=== PATIENT | female | born 1945 | race Caucasian/White ===

== ENCOUNTER 2018-02-23 11:49 | Emergency (ER) | payer MEDICARE, BC ==
[~2018-02-23] VITALS: Ht 149.9 cm; Wt 66.0 kg
[~2018-02-23 11:49] MED LIST: AMI25T PO; AMOX-422 PO; BAC10T PO; CELE-193 PO; DESV50TA PO; ESTR0.6261 PO; GABA-338 PO; GABA300C PO; METO5TAB98 PO; OMEP-84 PO; OXYC40TA39 PO; POTA20TA19 PO; SYN0.1T PO
[2018-02-23 12:11] VITALS: BP 136/95
== END 2018-02-23 13:46 | disposition home or self-care (01) ==
LOC: ER 11:50
DX: S80.02XA Contusion of left knee, initial encounter (principal); R07.81 Pleurodynia; G89.29 Other chronic pain; Z88.1 Allergy status to other antibiotic agents; Z88.5 Allergy status to narcotic agent; W01.0XXA Fall on same level from slipping, tripping and stumbling without subsequent striking against object, initial encounter; Y93.89 Activity, other specified; Y92.89 Other specified places as the place of occurrence of the external cause; Y99.8 Other external cause status
CPT/HCPCS: 73564; 99284

== ENCOUNTER 2018-09-23 12:07 | Emergency (ER) | payer MEDICARE, BC ==
[~2018-09-23] VITALS: Ht 149.9 cm; Wt 71.0 kg
[2018-09-23 12:58] LABS: CLARITY,URINE CLOUDY (Clear); COLOR,URINE YELLOW (Yellow); GLUCOSE, URINE NEGATIVE (Neg); KETONES,URINE TRACE mg/dl (Neg); LEUKOCYTE ESTERASE ,URINE SMALL (Neg); NITRITES, URINE NEGATIVE (Neg); OCCULT BLOOD,URINE TRACE-INTACT (Neg); PH,URINE 5.5 (4.8-8.0); PROTEIN,URINE NEGATIVE (Neg); UROBILINOGEN,URINE 0.2 E.U/dL (0.2-1.0)
[2018-09-23 13:09] LABS: UA COLLECTION TYPE CLN CATCH MIDSTREAM
[2018-09-23 13:10] LABS: BACTERIA,URINE 2+ /HPF (Neg); RBC,URINE 0-2 /HPF (0-2); WBC,URINE 50-100 /HPF (0-4)
[2018-09-23 13:11] LABS: MUCUS STRANDS FEW /LPF (Neg); SQUAMOUS EPITHELIAL CELL,UR FEW /LPF (FEW); WBC CLUMPS,URINE MODERATE /HPF (NEGATIVE)
[2018-09-23] MEDS ORDERED: SULF1TAB49 PO (13:16)
[2018-09-23] MEDS ORDERED: PHEN-824 PO (13:16)
[2018-09-23 13:20] VITALS: BP 148/57
== END 2018-09-23 13:21 | disposition home or self-care (01) ==
LOC: ER 12:07
DX: N39.0 Urinary tract infection, site not specified (principal); Z88.1 Allergy status to other antibiotic agents; Z88.5 Allergy status to narcotic agent; Z79.899 Other long term (current) drug therapy; Z98.890 Other specified postprocedural states
CPT/HCPCS: 81001; 87088; 99283

== ENCOUNTER 2018-12-03 19:13 | Emergency (ER) | payer MEDICARE, BC ==
[~2018-12-03] VITALS: Ht 147.3 cm; Wt 70.5 kg
[~2018-12-03 19:13] MED LIST changes: +PHEN-824 PO
[2018-12-03] MEDS ORDERED: morphine 4 MG/ML inj SYRINge IV ONE (20:20)
[2018-12-03] MEDS ORDERED: ondansetron/PF 4mg/2ml inj IV ONE (20:20)
[2018-12-03] MEDS ORDERED: ceFAZolin 1GM/D5W- ADD-VANTAGE 50 ML IV ONE (20:20)
[2018-12-03] MEDS ORDERED: CEPH500C5 PO (20:25)
[2018-12-03] MEDS ORDERED: morphine 10mg/ml inj. IV ONE (21:15)
[2018-12-03 21:48] VITALS: BP 116/68
== END 2018-12-03 21:50 | disposition home or self-care (01) ==
LOC: ER 19:13
DX: S81.802A Unspecified open wound, left lower leg, initial encounter (principal); Z98.890 Other specified postprocedural states; Z88.1 Allergy status to other antibiotic agents; Z88.5 Allergy status to narcotic agent; Z79.2 Long term (current) use of antibiotics; Z79.899 Other long term (current) drug therapy; X58.XXXA Exposure to other specified factors, initial encounter; Y93.89 Activity, other specified; Y92.89 Other specified places as the place of occurrence of the external cause; Y99.8 Other external cause status
CPT/HCPCS: 73564; 96365; 96375; 96376; 99283; J0690; J2270; J2405

== ENCOUNTER 2018-12-05 09:50 | Day surgery (SDC) | payer MEDICARE, BC ==
[~2018-12-05 09:50] MED LIST changes: +CEPH500C5 PO
[2018-12-05] MEDS ORDERED: LIDOcaine/PRILOcaine 5gm cream TP ONE (11:44)
[2018-12-05] MEDS ORDERED: LIDOcaine 1%/PF 5ML 10 MG/ML VIAL ONE (12:01)
--- NOTE | 2018-12-05 15:01 | NUR ---
Patient arrived safely into the [facility] via wheelchair. Patient admitted to outpatient wound care clinic for first time physician visit with Nahum Sierra MD. Dressing removed, wound cleansed and Emla cream applied per order. Patient assessed and medications and medical history reviewed. Dr. Sierra at bedside accompanied by RN. Wound assessed, time out performed by MD/RN. Wound debrided as detailed in the physician progress/procedure note. Plan of care discussed with patient. Dressings placed per MD orders. Patient instructed on the signs and symptoms of infection and to call the Wound Center if any occur or to go to the ED if we are closed: Increased pain in wound Increase in drainage from the wound Redness in the skin surrounding the wound Bleeding from the wound Temperature of 101 or greater Patient instructed that the weight of their body puts a large amount of pressure on their wounds. This pressure keeps the new tissue from growing and inhibits new blood vessels from forming. Explained that, if they continue to bear weight on a body part that has a wound, the time it takes to heal the wound increases, the wound may get worse or the wound may not heal at all. Patient verbalized understanding of all discharge instructions and plan of care. Patient left in stable condition with no sign or symptom of distress at time of discharge. Addendum: 12/05/18 at 1508 by Amy Coombs RN Amended: Links added.
== END 2018-12-05 13:00 | disposition home or self-care (01) ==
LOC: WOUND CARE 09:50
PROVIDERS: ATTEND Surgery
DX: S81.002A Unspecified open wound, left knee, initial encounter (principal); Z79.2 Long term (current) use of antibiotics; Z79.899 Other long term (current) drug therapy; Z98.890 Other specified postprocedural states; V49.9XXA Car occupant (driver) (passenger) injured in unspecified traffic accident, initial encounter; Y93.89 Activity, other specified; Y92.89 Other specified places as the place of occurrence of the external cause; Y99.8 Other external cause status
CPT/HCPCS: 11042; A6209; J2001; A6021; A6206; A6446

== ENCOUNTER 2018-12-09 11:00 | Day surgery (SDC) | payer MEDICARE, BC ==
[2018-12-09] MEDS ORDERED: LIDOcaine/PRILOcaine 5gm cream TP ONE (11:33)
--- NOTE | 2018-12-09 15:27 | NUR ---
Patient arrived safely into [facility] via wheelchair, accompanied by son. Patient admitted to outpatient wound care for physician visit with Nahum Sierra MD. Dressing removed, wound cleansed and emla cream applied per order. Patient assessed for changes in conditions, medications and medical history. Dr. Sierra at bedside accompanied by RN. Wound assessed, time out performed by MD/RN. Wound debrided as detailed in the physician progress/procedure note. Plan of care discussed with patient. Dressings placed per MD orders. Patient instructed on the signs and symptoms of infection and to call the Wound Center if any occur or to go to the ED if we are closed: Increased pain in wound Increase in drainage from the wound Redness in the skin surrounding the wound Bleeding from the wound Temperature of 101 or greater Patient instructed that the weight of their body puts a large amount of pressure on their wounds. This pressure keeps the new tissue from growing and inhibits new blood vessels from forming. Explained that, if they continue to bear weight on a body part that has a wound, the time it takes to heal the wound increases, the wound may get worse or the wound may not heal at all. Patient verbalized understanding of all discharge instructions and plan of care. Patient left in stable condition with no sign or symptom of distress at time of discharge. Addendum: 12/09/18 at 1529 by Amy Coombs RN Amended: Links added.
== END 2018-12-09 12:35 | disposition home or self-care (01) ==
LOC: WOUND CARE 11:00
PROVIDERS: ATTEND Surgery
DX: L98.492 Non-pressure chronic ulcer of skin of other sites with fat layer exposed (principal); Z79.2 Long term (current) use of antibiotics; Z79.899 Other long term (current) drug therapy; Z98.890 Other specified postprocedural states
CPT/HCPCS: 97597; A6209; A6222; A6021; A6446

== ENCOUNTER 2018-12-11 09:25 | Outpatient (CLI) | payer MEDICARE, BC ==
[2018-12-11 09:19] VITALS: BP 194/73
== END 2018-12-11 10:36 | disposition home or self-care (01) ==
LOC: ORTHO 09:25
PROVIDERS: ATTEND Nurse Practitioner Family
DX: S83.422A Sprain of lateral collateral ligament of left knee, initial encounter (principal); S83.512A Sprain of anterior cruciate ligament of left knee, initial encounter; X58.XXXA Exposure to other specified factors, initial encounter; Y93.89 Activity, other specified; Y92.89 Other specified places as the place of occurrence of the external cause; Y99.8 Other external cause status; Z98.84 Bariatric surgery status
CPT/HCPCS: 73564; 99213

== ENCOUNTER 2018-12-16 11:15 | Day surgery (SDC) | payer MEDICARE, BC ==
[2018-12-16] MEDS ORDERED: LIDOcaine/PRILOcaine 5gm cream TP ONE (12:01)
--- NOTE | 2018-12-16 13:30 | NUR ---
Patient arrived via wheelchair accompanied by her son from [facility] and was admitted to outpatient wound care for physician visit with Nahum Sierra MD. Dressing removed, wound cleansed and Emla cream applied per order. Patient assessed for changes in conditions, medications and medical history. 1245 - Dr. Sierra at bedside accompanied by RN. Wound assessed, time out performed by MD/RN. Wound debrided as detailed in the physician progress/procedure note. Plan of care discussed with patient. Dressings placed per MD orders. Patient instructed on the signs and symptoms of infection and to call the Wound Center if any occur or to go to the ED if we are closed: Increased pain in wound Increase in drainage from the wound Redness in the skin surrounding the wound Bleeding from the wound Temperature of 101 or greater Patient instructed that the weight of their body puts a large amount of pressure on their wounds. This pressure keeps the new tissue from growing and inhibits new blood vessels from forming. Explained that, if they continue to bear weight on a body part that has a wound, the time it takes to heal the wound increases, the wound may get worse or the wound may not heal at all. Patient verbalized understanding of all discharge instructions and plan of care and exited via wheelchair accompanied by her son out to [facility] in stable condition with no sign or symptom of distress at time of discharge.
== END 2018-12-16 13:08 | disposition home or self-care (01) ==
LOC: WOUND CARE 11:15
PROVIDERS: ATTEND Surgery
DX: L98.492 Non-pressure chronic ulcer of skin of other sites with fat layer exposed (principal); M17.12 Unilateral primary osteoarthritis, left knee; Z79.2 Long term (current) use of antibiotics; Z79.899 Other long term (current) drug therapy; Z98.890 Other specified postprocedural states
CPT/HCPCS: 11042; A6209; A6021; A6206; A6446

== ENCOUNTER 2018-12-16 15:06 | Outpatient (CLI) | payer MEDICARE, BC | END 2018-12-16 23:59 | disposition home or self-care (01) | LOC: RAD 15:06 | PROVIDERS: ATTEND Nurse Practitioner Family | DX: M17.12 Unilateral primary osteoarthritis, left knee (principal); M25.462 Effusion, left knee; Z98.890 Other specified postprocedural states; Z98.84 Bariatric surgery status; Z88.5 Allergy status to narcotic agent; Z88.1 Allergy status to other antibiotic agents | CPT/HCPCS: 73721 ==

== ENCOUNTER 2018-12-23 11:20 | Outpatient (CLI) | payer MEDICARE, BC ==
[2018-12-23] MEDS ORDERED: LIDOcaine/PRILOcaine 5gm cream TP ONE (11:46)
--- NOTE | 2018-12-23 14:34 | NUR ---
Patient arrived via wheelchair from [facility] and was admitted to outpatient wound care for physician visit with Nahum Sierra MD. Dressing removed, wound cleansed and Emla cream applied per order. Patient assessed for changes in conditions, medications and medical history. 1200 - Dr. Sierra at bedside accompanied by RN. Wound assessed, time out performed by MD/RN. Wound debrided and procedure performed as detailed in the physician progress/procedure note. Plan of care discussed with patient. Dressings placed per MD orders. Pt instructed that they should not be disconnected from suction for more than 2 hours at a time. If they are not able to get the suction back on they need to remove the dressing and take all of the foam out of the wound, place hydrogel gauze on/in the wound, and change the dressing daily until someone can replace the dressing. Pt instructed to call the Wound Center or their Home Health Agency immediately if they notice a change in the color or amount of the fluid in the canister, their wound looks more red than usual or has a foul smell, the skin around their wound looks reddened or irritated, the dressing feels or appears loose, they experience pain or the alarm will not turn off. Pt instructed to call 911 or go to the ED if their canister fills rapidly with blood. Patient instructed on the signs and symptoms of infection and to call the Wound Center if any occur or to go to the ED if we are closed: Increased pain in wound Increase in drainage from the wound Redness in the skin surrounding the wound Bleeding from the wound Temperature of 101 or greater Patient instructed that the weight of their body puts a large amount of pressure on their wounds. This pressure keeps the new tissue from growing and inhibits new blood vessels from forming. Explained that, if they continue to bear weight on a body part that has a wound, the time it takes to heal the wound increases, the wound may get worse or the wound may not heal at all. Patient verbalized understanding of all discharge instructions and plan of care and exited via wheelchair out to [facility] accompanied by her son and is in stable condition with no sign or symptom of distress at time of discharge.
== END 2018-12-23 13:11 | disposition home or self-care (01) ==
LOC: WOUND CARE 11:20 → EDSTATUS 11:30 → WOUND CARE 13:11
PROVIDERS: ATTEND Surgery
DX: L98.492 Non-pressure chronic ulcer of skin of other sites with fat layer exposed (principal); M17.12 Unilateral primary osteoarthritis, left knee; G47.30 Sleep apnea, unspecified; Z79.2 Long term (current) use of antibiotics; Z79.899 Other long term (current) drug therapy; Z98.890 Other specified postprocedural states
CPT/HCPCS: A6222; C5271; Q4102; A6250

== ENCOUNTER 2018-12-30 11:05 | Day surgery (SDC) | payer MEDICARE, BC ==
[~2018-12-30 11:05] MED LIST changes: -CEPH500C5 PO
--- NOTE | 2018-12-30 13:30 | NUR ---
Patient arrived via wheelchair accompanied by her son from [facility] and was admitted to outpatient wound care for physician visit with Nahum Sierra MD. Dressing removed, wound cleansed. Patient assessed for changes in conditions, medications and medical history. 1230 - Dr. Sierra at bedside accompanied by RN. Wound assessed, time out performed by MD/RN. Wound debrided and procedure performed as detailed in the physician progress/procedure note. Plan of care discussed with patient. Dressings placed per MD orders. Pt instructed that they should not be disconnected from suction for more than 2 hours at a time. If they are not able to get the suction back on they need to remove the dressing and take all of the foam out of the wound, place hydrogel gauze on/in the wound, and change the dressing daily until someone can replace the dressing. Pt instructed to call the Wound Center or their Home Health Agency immediately if they notice a change in the color or amount of the fluid in the canister, their wound looks more red than usual or has a foul smell, the skin around their wound looks reddened or irritated, the dressing feels or appears loose, they experience pain or the alarm will not turn off. Pt instructed to call 911 or go to the ED if their canister fills rapidly with blood. Patient instructed on the signs and symptoms of infection and to call the Wound Center if any occur or to go to the ED if we are closed: Increased pain in wound Increase in drainage from the wound Redness in the skin surrounding the wound Bleeding from the wound Temperature of 101 or greater Patient instructed that the weight of their body puts a large amount of pressure on their wounds. This pressure keeps the new tissue from growing and inhibits new blood vessels from forming. Explained that, if they continue to bear weight on a body part that has a wound, the time it takes to heal the wound increases, the wound may get worse or the wound may not heal at all. Patient verbalized understanding of all discharge instructions and plan of care and exited via wheelchair accompanied by her son out to [facility] in stable condition with no sign or symptom of distress at time of discharge.
== END 2018-12-30 13:41 | disposition home or self-care (01) ==
LOC: WOUND CARE 11:05
PROVIDERS: ATTEND Surgery
DX: L98.492 Non-pressure chronic ulcer of skin of other sites with fat layer exposed (principal); M17.12 Unilateral primary osteoarthritis, left knee; G47.30 Sleep apnea, unspecified; Z79.2 Long term (current) use of antibiotics; Z79.899 Other long term (current) drug therapy; Z98.890 Other specified postprocedural states
CPT/HCPCS: C5271; Q4102; A4456; A6250

== ENCOUNTER 2019-01-06 10:29 | Day surgery (SDC) | payer MEDICARE, BC ==
[2019-01-06] MEDS ORDERED: LIDOcaine/PRILOcaine 5gm cream TP ONE (11:38)
--- NOTE | 2019-01-06 13:30 | NUR ---
Patient arrived via wheelchair from [facility] and was admitted to outpatient wound care for physician visit with Nahum Sierra MD. Dressing removed, wound cleansed and Emla cream applied per order. Patient assessed for changes in conditions, medications and medical history. 1225 - Dr. Sierra at bedside accompanied by RN. Wound assessed, time out performed by MD/RN. Wound debrided and procedure performed as detailed in the physician progress/procedure note. Plan of care discussed with patient. Dressings placed per MD orders. Pt instructed that they should not be disconnected from suction for more than 2 hours at a time. If they are not able to get the suction back on they need to remove the dressing and take all of the foam out of the wound, place hydrogel gauze on/in the wound, and change the dressing daily until someone can replace the dressing. Pt instructed to call the Wound Center or their Home Health Agency immediately if they notice a change in the color or amount of the fluid in the canister, their wound looks more red than usual or has a foul smell, the skin around their wound looks reddened or irritated, the dressing feels or appears loose, they experience pain or the alarm will not turn off. Pt instructed to call 911 or go to the ED if their canister fills rapidly with blood. Patient instructed on the signs and symptoms of infection and to call the Wound Center if any occur or to go to the ED if we are closed: Increased pain in wound Increase in drainage from the wound Redness in the skin surrounding the wound Bleeding from the wound Temperature of 101 or greater Patient instructed that the weight of their body puts a large amount of pressure on their wounds. This pressure keeps the new tissue from growing and inhibits new blood vessels from forming. Explained that, if they continue to bear weight on a body part that has a wound, the time it takes to heal the wound increases, the wound may get worse or the wound may not heal at all. Patient verbalized understanding of all discharge instructions and plan of care and exited via wheelchair accompanied by her son out to [facility] in stable condition with no sign or symptom of distress at time of discharge.
== END 2019-01-06 12:57 | disposition home or self-care (01) ==
LOC: WOUND CARE 10:29
PROVIDERS: ATTEND Surgery
DX: L98.492 Non-pressure chronic ulcer of skin of other sites with fat layer exposed (principal); M17.12 Unilateral primary osteoarthritis, left knee; G47.30 Sleep apnea, unspecified; Z79.2 Long term (current) use of antibiotics; Z79.899 Other long term (current) drug therapy; Z98.890 Other specified postprocedural states
CPT/HCPCS: A6222; C5271; Q4102; A4456; A6250

== ENCOUNTER 2019-01-13 11:28 | Day surgery (SDC) | payer MEDICARE, BC ==
[2019-01-13] MEDS ORDERED: LIDOcaine/PRILOcaine 5gm cream TP ONE (12:23)
--- NOTE | 2019-01-13 13:23 | NUR ---
Patient arrived safely into [facility] via wheelchair. Patient was admitted to outpatient wound care for physician visit with Nahum Sierra MD. Dressing removed, wound cleansed and Emla cream applied per order. Patient assessed for changes in conditions, medications and medical history. Dr. Sierra at bedside accompanied by RN. Wound assessed, time out performed by MD/RN. Wound debrided as detailed in the physician progress/procedure note. Plan of care discussed with patient. Dressings placed per MD orders. Patient instructed on the signs and symptoms of infection and to call the Wound Center if any occur or to go to the ED if we are closed: Increased pain in wound Increase in drainage from the wound Redness in the skin surrounding the wound Bleeding from the wound Temperature of 101 or greater Patient instructed that the weight of their body puts a large amount of pressure on their wounds. This pressure keeps the new tissue from growing and inhibits new blood vessels from forming. Explained that, if they continue to bear weight on a body part that has a wound, the time it takes to heal the wound increases, the wound may get worse or the wound may not heal at all. Patient verbalized understanding of all discharge instructions and plan of care. Patient left in stable condition with no sign or symptom of distress at time of discharge. Addendum: 01/13/19 at 1418 by Amy Coombs RN Amended: Links added.
== END 2019-01-13 13:05 | disposition home or self-care (01) ==
LOC: WOUND CARE 11:28
PROVIDERS: ATTEND Surgery
DX: L98.492 Non-pressure chronic ulcer of skin of other sites with fat layer exposed (principal); M17.12 Unilateral primary osteoarthritis, left knee; G47.30 Sleep apnea, unspecified; Z79.2 Long term (current) use of antibiotics; Z79.899 Other long term (current) drug therapy; Z98.890 Other specified postprocedural states
CPT/HCPCS: A6222; C5271; Q4102; 97597

== ENCOUNTER 2019-01-20 11:24 | Day surgery (SDC) | payer MEDICARE, BC ==
[2019-01-20] MEDS ORDERED: LIDOcaine/PRILOcaine 5gm cream TP ONE (12:09)
--- NOTE | 2019-01-20 13:34 | NUR ---
Patient ambulated independently from [facility] and was admitted to outpatient wound care for physician visit with Nahum Sierra MD. Dressings and wound vac removed, wound cleansed and Emla cream applied per order. Patient assessed for changes in conditions, medications and medical history. Dr. Sierra at bedside accompanied by RN. Wound assessed, time out performed by MD/RN. Wound debrided as detailed in the physician progress/procedure note. Plan of care discussed with patient. Dressings and wound vac placed per MD orders. Patient instructed on the signs and symptoms of infection and to call the Wound Center if any occur or to go to the ED if we are closed: Increased pain in wound Increase in drainage from the wound Redness in the skin surrounding the wound Bleeding from the wound Temperature of 101 or greater Pt instructed that they should not be disconnected from suction for more than 2 hours at a time. If they are not able to get the suction back on they need to remove the dressing and take all of the foam out of the wound, place hydrogel gauze on/in the wound, and change the dressing daily until someone can replace the dressing. Pt instructed to call the Wound Center or their Home Health Agency immediately if they notice a change in the color or amount of the fluid in the canister, their wound looks more red than usual or has a foul smell, the skin around their wound looks reddened or irritated, the dressing feels or appears loose, they experience pain or the alarm will not turn off. Pt instructed to call 911 or go to the ED if their canister fills rapidly with blood. Patient instructed that the weight of their body puts a large amount of pressure on their wounds. This pressure keeps the new tissue from growing and inhibits new blood vessels from forming. Explained that, if they continue to bear weight on a body part that has a wound, the time it takes to heal the wound increases, the wound may get worse or the wound may not heal at all. Patient verbalized understanding of all discharge instructions and plan of care and ambulated independently out to [facility] in stable condition with no sign or symptom of distress at time of discharge. Addendum: 01/20/19 at 1340 by Amy Coombs RN Amended: Links added.
== END 2019-01-20 13:23 | disposition home or self-care (01) ==
LOC: WOUND CARE 11:24
PROVIDERS: ATTEND Surgery
DX: L98.492 Non-pressure chronic ulcer of skin of other sites with fat layer exposed (principal); M17.12 Unilateral primary osteoarthritis, left knee; I87.2 Venous insufficiency (chronic) (peripheral); G47.30 Sleep apnea, unspecified; Z79.2 Long term (current) use of antibiotics; Z79.899 Other long term (current) drug therapy; Z98.890 Other specified postprocedural states
CPT/HCPCS: A6222; C5271; Q4102; 97597; A4456

== ENCOUNTER 2019-01-27 11:28 | Day surgery (SDC) | payer MEDICARE, BC ==
[2019-01-27] MEDS ORDERED: LIDOcaine/PRILOcaine 5gm cream TP ONE (12:14)
--- NOTE | 2019-01-27 13:52 | NUR ---
Patient arrived via wheelchair accompanied by son Cal from [facility] and was admitted to outpatient wound care for physician visit with Nahum Sierra MD. Dressing removed, wound cleansed and Emla cream applied per order. Patient assessed for changes in conditions, medications and medical history. 1215 - Dr. Sierra at bedside accompanied by RN. Wound assessed, time out performed by MD/RN. Wound debrided and as detailed in the physician progress/procedure note. Plan of care discussed with patient. Dressings placed per MD orders. Pt instructed that they should not be disconnected from suction for more than 2 hours at a time. If they are not able to get the suction back on they need to remove the dressing and take all of the foam out of the wound, place hydrogel gauze on/in the wound, and change the dressing daily until someone can replace the dressing. Pt instructed to call the Wound Center or their Home Health Agency immediately if they notice a change in the color or amount of the fluid in the canister, their wound looks more red than usual or has a foul smell, the skin around their wound looks reddened or irritated, the dressing feels or appears loose, they experience pain or the alarm will not turn off. Pt instructed to call 911 or go to the ED if their canister fills rapidly with blood. Patient instructed on the signs and symptoms of infection and to call the Wound Center if any occur or to go to the ED if we are closed: Increased pain in wound Increase in drainage from the wound Redness in the skin surrounding the wound Bleeding from the wound Temperature of 101 or greater Patient instructed that the weight of their body puts a large amount of pressure on their wounds. This pressure keeps the new tissue from growing and inhibits new blood vessels from forming. Explained that, if they continue to bear weight on a body part that has a wound, the time it takes to heal the wound increases, the wound may get worse or the wound may not heal at all. Patient verbalized understanding of all discharge instructions and plan of care and exited via wheelchair accompanied by Cal out to [facility] in stable condition with no sign or symptom of distress at time of discharge.
== END 2019-01-27 13:12 | disposition home or self-care (01) ==
LOC: WOUND CARE 11:28
PROVIDERS: ATTEND Surgery
DX: L98.492 Non-pressure chronic ulcer of skin of other sites with fat layer exposed (principal); M17.12 Unilateral primary osteoarthritis, left knee; I87.2 Venous insufficiency (chronic) (peripheral); G47.30 Sleep apnea, unspecified; Z79.2 Long term (current) use of antibiotics; Z79.899 Other long term (current) drug therapy; Z98.890 Other specified postprocedural states
CPT/HCPCS: A6222; C5271; Q4102; A4456; A6250

== ENCOUNTER 2019-02-03 11:17 | Day surgery (SDC) | payer MEDICARE, BC ==
[~2019-02-03 11:17] MED LIST changes: -AMOX-422 PO
--- NOTE | 2019-02-03 13:00 | NUR ---
Patient arrived via wheelchair accompanied by son from [facility] and was admitted to outpatient wound care for physician visit with Nahum Sierra MD. Dressing removed, wound cleansed. Patient assessed for changes in conditions, medications and medical history. 1220 - Dr. Sierra at bedside accompanied by RN. Wound assessed, time out performed by MD/RN. Wound debrided and procedure performed as detailed in the physician progress/procedure note. Plan of care discussed with patient. Dressings placed per MD orders. Patient instructed on the signs and symptoms of infection and to call the Wound Center if any occur or to go to the ED if we are closed: Increased pain in wound Increase in drainage from the wound Redness in the skin surrounding the wound Bleeding from the wound Temperature of 101 or greater Patient instructed that the weight of their body puts a large amount of pressure on their wounds. This pressure keeps the new tissue from growing and inhibits new blood vessels from forming. Explained that, if they continue to bear weight on a body part that has a wound, the time it takes to heal the wound increases, the wound may get worse or the wound may not heal at all. Patient verbalized understanding of all discharge instructions and plan of care and exited via wheelchair accompanied by son out to [facility] in stable condition with no sign or symptom of distress at time of discharge.
== END 2019-02-03 12:38 | disposition home or self-care (01) ==
LOC: WOUND CARE 11:17
PROVIDERS: ATTEND Surgery
DX: L98.492 Non-pressure chronic ulcer of skin of other sites with fat layer exposed (principal); M17.12 Unilateral primary osteoarthritis, left knee; I87.2 Venous insufficiency (chronic) (peripheral); G47.30 Sleep apnea, unspecified; Z79.2 Long term (current) use of antibiotics; Z79.899 Other long term (current) drug therapy; Z98.890 Other specified postprocedural states
CPT/HCPCS: A6209; A6222; C5271; Q4102; A4456; A6250; A6446

== ENCOUNTER 2019-02-10 11:16 | Day surgery (SDC) | payer MEDICARE, BC ==
[2019-02-10] MEDS ORDERED: hydrocortisone 1% cream 28gm TP ONE (12:22)
--- NOTE | 2019-02-10 12:38 | NUR ---
Patient arrived safely into [facility] via wheelchair. Patient admitted to outpatient wound care for physician visit with Nahum Sierra MD. Dressing removed, wound cleansed and lidocaine applied per order. Patient assessed for changes in conditions, medications and medical history. Dr. Sierra at bedside accompanied by RN. Wound assessed, time out performed by MD/RN. Wound debrided as detailed in the physician progress/procedure note. Plan of care discussed with patient. Dressings placed per MD orders. Patient instructed on the signs and symptoms of infection and to call the Wound Center if any occur or to go to the ED if we are closed: Increased pain in wound Increase in drainage from the wound Redness in the skin surrounding the wound Bleeding from the wound Temperature of 101 or greater Patient instructed that the weight of their body puts a large amount of pressure on their wounds. This pressure keeps the new tissue from growing and inhibits new blood vessels from forming. Explained that, if they continue to bear weight on a body part that has a wound, the time it takes to heal the wound increases, the wound may get worse or the wound may not heal at all. Patient verbalized understanding of all discharge instructions and plan of care. Patient left in stable condition with no sign or symptom of distress at time of discharge. Addendum: 02/10/19 at 1241 by Amy Coombs RN Amended: Links added.
== END 2019-02-10 12:34 | disposition home or self-care (01) ==
LOC: WOUND CARE 11:16
PROVIDERS: ATTEND Surgery
DX: L98.492 Non-pressure chronic ulcer of skin of other sites with fat layer exposed (principal); M17.12 Unilateral primary osteoarthritis, left knee; I87.2 Venous insufficiency (chronic) (peripheral); G47.30 Sleep apnea, unspecified; Z79.2 Long term (current) use of antibiotics; Z79.899 Other long term (current) drug therapy; Z98.890 Other specified postprocedural states
CPT/HCPCS: 97597; A6222; A6021; A6446

== ENCOUNTER 2019-02-17 11:08 | Day surgery (SDC) | payer MEDICARE, BC ==
[2019-02-17] MEDS ORDERED: LIDOcaine/PRILOcaine 5gm cream TP ONE (11:28)
--- NOTE | 2019-02-17 13:37 | NUR ---
Patient arrived safely into [facility] via wheelch[facility]. Patient admitted to outpatient wound care for physician visit with Nahum Sierra MD. Dressing removed, wound cleansed and Emla cream applied per order. Patient assessed for changes in conditions, medications and medical history. Dr. Sierra at bedside accompanied by RN. Wound assessed, time out performed by MD/RN. Wound debrided as detailed in the physician progress/procedure note. Plan of care discussed with patient. Dressings placed per MD orders. Patient instructed on the signs and symptoms of infection and to call the Wound Center if any occur or to go to the ED if we are closed: Increased pain in wound Increase in drainage from the wound Redness in the skin surrounding the wound Bleeding from the wound Temperature of 101 or greater Patient instructed that the weight of their body puts a large amount of pressure on their wounds. This pressure keeps the new tissue from growing and inhibits new blood vessels from forming. Explained that, if they continue to bear weight on a body part that has a wound, the time it takes to heal the wound increases, the wound may get worse or the wound may not heal at all. Patient verbalized understanding of all discharge instructions and plan of care. Patient left in stable condition with no sign or symptom of distress at time of discharge. Addendum: 02/17/19 at 1341 by Amy Coombs RN Amended: Links added.
== END 2019-02-17 12:40 | disposition home or self-care (01) ==
LOC: WOUND CARE 11:08
PROVIDERS: ATTEND Surgery
DX: L98.492 Non-pressure chronic ulcer of skin of other sites with fat layer exposed (principal); M17.12 Unilateral primary osteoarthritis, left knee; I87.2 Venous insufficiency (chronic) (peripheral); G47.30 Sleep apnea, unspecified; Z79.2 Long term (current) use of antibiotics; Z79.899 Other long term (current) drug therapy; Z98.890 Other specified postprocedural states
CPT/HCPCS: A6222; A6255; C5271; Q4102; A6446

== ENCOUNTER 2019-02-27 11:30 | Outpatient (CLI) | payer MEDICARE, BC ==
[2019-02-27] MEDS ORDERED: LIDOcaine/PRILOcaine 5gm cream TP ONE (11:54)
--- NOTE | 2019-02-27 12:43 | NUR ---
Patient ambulated independently from [facility] and was admitted to outpatient wound care for physician visit with Nahum Sierra MD. Dressing removed, wound cleansed and Emla cream applied per order. Patient assessed for changes in conditions, medications and medical history. 1210 - Dr. Sierra at bedside accompanied by RN. Wound assessed by MD, orders written. Plan of care discussed with patient. Dressings placed per MD orders. Patient instructed on the signs and symptoms of infection and to call the Wound Center if any occur or to go to the ED if we are closed: Increased pain in wound Increase in drainage from the wound Redness in the skin surrounding the wound Bleeding from the wound Temperature of 101 or greater Patient instructed that the weight of their body puts a large amount of pressure on their wounds. This pressure keeps the new tissue from growing and inhibits new blood vessels from forming. Explained that, if they continue to bear weight on a body part that has a wound, the time it takes to heal the wound increases, the wound may get worse or the wound may not heal at all. Patient verbalized understanding of all discharge instructions and plan of care and ambulated independently out to [facility] in stable condition with no sign or symptom of distress at time of discharge.
== END 2019-02-27 12:20 | disposition home or self-care (01) ==
LOC: EDSTATUS 11:30 → WOUND CARE 11:30
PROVIDERS: ATTEND Surgery
DX: L98.492 Non-pressure chronic ulcer of skin of other sites with fat layer exposed (principal); M17.12 Unilateral primary osteoarthritis, left knee; I87.2 Venous insufficiency (chronic) (peripheral); G47.30 Sleep apnea, unspecified; Z79.2 Long term (current) use of antibiotics; Z79.899 Other long term (current) drug therapy; Z98.890 Other specified postprocedural states
CPT/HCPCS: A6222; A6255; G0463; A6021; A6446

== ENCOUNTER 2019-03-06 10:55 | Outpatient (CLI) | payer MEDICARE, BC ==
--- NOTE | 2019-03-06 11:05 | NUR ---
Patient ambulated independently from [facility] and was admitted to outpatient wound care for physician visit with Nahum Sierra MD. Dressing removed, wound cleansed. Patient assessed for changes in conditions, medications and medical history. 1100 - Dr. Sierra at bedside accompanied by RN. Wound assessed by and is declared healed. Plan of care discussed with patient. Patient is discharged from the wound clinic to follow up on an as needed basis. No dressings ordered or placed. Patient instructed on the signs and symptoms of infection and to call the Wound Center if any occur or to go to the ED if we are closed: Increased pain in wound Increase in drainage from the wound Redness in the skin surrounding the wound Bleeding from the wound Temperature of 101 or greater Patient instructed that the weight of their body puts a large amount of pressure on their wounds. This pressure keeps the new tissue from growing and inhibits new blood vessels from forming. Explained that, if they continue to bear weight on a body part that has a wound, the time it takes to heal the wound increases, the wound may get worse or the wound may not heal at all. Patient verbalized understanding of all discharge instructions and plan of care and ambulated independently out to [facility] in stable condition with no sign or symptom of distress at time of discharge.
== END 2019-03-06 11:45 | disposition home or self-care (01) ==
LOC: WOUND CARE 10:55 → EDSTATUS 11:30 → WOUND CARE 11:45
PROVIDERS: ATTEND Surgery
DX: L98.498 Non-pressure chronic ulcer of skin of other sites with other specified severity (principal); M17.12 Unilateral primary osteoarthritis, left knee; I87.2 Venous insufficiency (chronic) (peripheral); G47.30 Sleep apnea, unspecified; Z79.2 Long term (current) use of antibiotics; Z79.899 Other long term (current) drug therapy; Z98.890 Other specified postprocedural states
CPT/HCPCS: G0463

== ENCOUNTER 2019-06-06 07:39 | Day surgery (SDC) | payer MEDICARE, BC ==
[2019-06-03 14:25] LABS: BASOPHILS % (AUTO) 0.2 % (0-1); EOSINOPHILS # (AUTO) 0.1 X10'3 (0-0.9); EOSINOPHILS % (AUTO) 0.8 % (0-6); LYMPHOCYTES # (AUTO) 1.5 X10'3 (1.1-4.8); LYMPHOCYTES % (AUTO) 22.7 % (21-51); MEAN CORPUSCULAR HEMOGLOBIN 28.9 PG (27.0-31.0); MEAN CORPUSCULAR HGB CONC 32.8 g/dL (33.0-36.5); MEAN CORPUSCULAR VOLUME 88.1 FL (78-98); MEAN PLATELET VOLUME 7.1 FL (7.4-10.4); MONOCYTES # (AUTO) 0.6 X10'3 (0-0.9); NEUTROPHILS # (AUTO) 4.4 X10'3 (1.8-7.7); NEUTROPHILS % (AUTO) 67.3 % (42-75); PRE OP HEMATOCRIT 42.9 % (35.0-45.0); PRE OP HEMOGLOBIN 14.1 g/dL (12.0-16.0); PRE OP PLATELET COUNT 321 X10'3 (140-440); RED BLOOD COUNT 4.86 X10'6 (4.20-5.60); RED CELL DISTRIBUTION WIDTH 15.9 % (11.5-14.5)
[2019-06-03 14:38] LABS: ALBUMIN 3.6 G/DL (3.4-5.0); ALKALINE PHOSPHATASE 82 IU/L (46-116); BLOOD UREA NITROGEN 6 MG/DL (7-18); CHLORIDE 102 MMOL/L (99-107); CREATININE 0.67 MG/DL (0.40-0.90); PRE OP ALT 33 U/L (30-65); PRE OP ANION GAP 6 (8-16); PRE OP AST 31 U/L (10-37); PRE OP BILIRUB, TOTAL 0.3 MG/DL (0.0-1.0); PRE OP GLUCOSE 106 MG/DL (70-104); PRE OP POTASSIUM 4.4 MMOL/L (3.4-5.1); PRE OP SODIUM 139 MMOL/L (135-145); TOTAL CARBON DIOXIDE 30.8 MMOL/L (24-32); TOTAL PROTEIN 7.1 G/DL (6.4-8.2); eGFR 87 ML/MIN
[2019-06-06] VITALS (7 sets, daily range): BP systolic 107–128; BP diastolic 62–85
[~2019-06-06] VITALS: Ht 147.3 cm; Wt 68.0 kg
[~2019-06-06 07:39] MED LIST changes: -AMI25T PO; +BUPIVAcaine/PF 2.5mg/ml (0.25%) 10ml vial ONE; +BUSP10TA3 PO; -CELE-193 PO; +CITA20TA27 PO; -DESV50TA PO; -ESTR0.6261 PO; -GABA-338 PO; +HYDR-3972 PO; +LEVO75TA98 PO; +MELO-102 PO; -METO5TAB98 PO; -OMEP-84 PO; -OXYC40TA39 PO; -PHEN-824 PO; -POTA20TA19 PO; -SYN0.1T PO
[2019-06-06] MEDS ORDERED: famotidine 20mg tablet PO ONE (08:15)
[2019-06-06] MEDS ORDERED: ringers solution, lacted 1,000 ML IV SCH ×2 (08:15→08:43)
[2019-06-06] MEDS ORDERED: ceFAZolin 1GM/D5W- ADD-VANTAGE 50 ML IV ONE (08:15)
[2019-06-06] MEDS ORDERED: hydrALAZINE 20mg/ml inj. IV PRN (08:45)
[2019-06-06] MEDS ORDERED: labetalol 20mg/4ml (5mg/ml) syringe IV PRN (08:45)
[2019-06-06] MEDS ORDERED: fentaNYL/PF 50MCG/1 ML 2ML syringe IV PRN ×2 (08:45)
[2019-06-06] MEDS ORDERED: ondansetron/PF 4mg/2ml inj IV PRN (08:45)
[2019-06-06] MEDS ORDERED: morphine 4 MG/ML inj SYRINge IV PRN ×2 (08:45)
[2019-06-06] MEDS ORDERED: fentaNYL/PF 50MCG/1 ML 2ML syringe ONE (10:28)
[2019-06-06] MEDS ORDERED: midazolam 2 mg/2 ml injection ONE (10:28)
--- NOTE | 2019-06-06 12:11 | NUR ---
Received from OR via , accompanied by Anesthesiologist JACKY and report given by Anesthesiolgist. AWAKE IN NO RESP DISTRESS SKIN WARM AND DRY HOB AND RUE ELEVATED.FINGERS WARM AND PINK GOOD CAP REFILL. MOVES FINGERS. NO CO PAIN. ICE TO RIGHT HAND.
[2019-06-06] MEDS ORDERED: HYDROcodone/acetaminophen 10/325mg tab PO ONE (12:35)
--- NOTE | 2019-06-06 13:21 | NUR ---
AWAKE VS WNL PAIN DECREASED IN BACK, HAND STILL NUMB DOES MOVE FINGERS, DSG DI, ICE TO RT HAND, FINGERS WARM PINK GOOD CAP REFILL, PT REQUIESTED SLING BECAUSE SHE IS TOO TEMPTED TO USE RT HAND TO MOVE AROUND. SLING APPLIED AND HAS ICE TO HAND. TOLERATES LIQUIDS, DISCH INSTR GIVEN TO PT AND UNDERSTOOD. HOME WITH SON.
== END 2019-06-06 13:21 | disposition home or self-care (01) ==
LOC: PAS 07:39
PROVIDERS: ATTEND Orthopaedic Surgery Hand Surgery
DX: M19.041 Primary osteoarthritis, right hand (principal); M18.11 Unilateral primary osteoarthritis of first carpometacarpal joint, right hand; E66.9 Obesity, unspecified; Z68.31 Body mass index [BMI] 31.0-31.9, adult; G47.30 Sleep apnea, unspecified; F41.9 Anxiety disorder, unspecified; F32.9 Major depressive disorder, single episode, unspecified; E03.9 Hypothyroidism, unspecified; Z86.14 Personal history of Methicillin resistant Staphylococcus aureus infection; Z86.19 Personal history of other infectious and parasitic diseases; Z79.899 Other long term (current) drug therapy; Z88.1 Allergy status to other antibiotic agents; Z91.09 Other allergy status, other than to drugs and biological substances; Z90.710 Acquired absence of both cervix and uterus
CPT/HCPCS: 26860; 26861; 36415; 80053; 82948; 85025; 93005; A6222; C1713; J0690; J2250; J3010; J3490; J7120; A4215; A4618; A7000

== ENCOUNTER 2020-08-06 08:40 | Day surgery (SDC) | payer MEDICARE, BC ==
[2020-07-30 13:59] LABS: BASOPHILS # (AUTO) 0.1 X10'3 (0-0.2); BASOPHILS % (AUTO) 1.1 % (0-1); EOSINOPHILS # (AUTO) 0.1 X10'3 (0-0.9); EOSINOPHILS % (AUTO) 2.8 % (0-6); LYMPHOCYTES # (AUTO) 1.6 X10'3 (1.1-4.8); LYMPHOCYTES % (AUTO) 32.8 % (21-51); MEAN CORPUSCULAR HEMOGLOBIN 31.2 PG (27.0-31.0); MEAN CORPUSCULAR VOLUME 91.8 FL (78-98); MEAN PLATELET VOLUME 6.7 FL (7.4-10.4); MONOCYTES # (AUTO) 0.5 X10'3 (0-0.9); MONOCYTES % (AUTO) 11.2 % (2-12); NEUTROPHILS # (AUTO) 2.5 X10'3 (1.8-7.7); NEUTROPHILS % (AUTO) 52.1 % (42-75); PRE OP HEMATOCRIT 42.7 % (35.0-45.0); PRE OP HEMOGLOBIN 14.5 g/dL (12.0-16.0); PRE OP PLATELET COUNT 318 X10'3 (140-440); RED BLOOD COUNT 4.65 X10'6 (4.20-5.60); RED CELL DISTRIBUTION WIDTH 13.6 % (11.5-14.5)
[2020-07-30 14:12] LABS: ALBUMIN 3.8 G/DL (3.4-5.0); ALBUMIN/GLOBULIN RATIO 1.1 (1.1-1.5); ALKALINE PHOSPHATASE 110 IU/L (46-116); BLOOD UREA NITROGEN 6 MG/DL (7-18); BUN/CREATININE RATIO 8.8 (6.6-38.0); CALCIUM 8.3 MG/DL (8.5-10.1); CHLORIDE 102 MMOL/L (99-107); CREATININE 0.68 MG/DL (0.40-0.90); PRE OP ALT 48 U/L (30-65); PRE OP ANION GAP 1 (8-16); PRE OP AST 34 U/L (10-37); PRE OP BILIRUB, TOTAL 0.4 MG/DL (0.0-1.0); PRE OP GLUCOSE 101 MG/DL (70-104); PRE OP POTASSIUM 4.6 MMOL/L (3.4-5.1); PRE OP SODIUM 137 MMOL/L (135-145); TOTAL CARBON DIOXIDE 34.1 MMOL/L (24-32); TOTAL PROTEIN 7.3 G/DL (6.4-8.2); eGFR 85 ML/MIN
[~2020-08-06] VITALS: Ht 149.9 cm; Wt 68.5 kg
[~2020-08-06 08:40] MED LIST changes: +BIOTIN; +CALC-723 PO; +CHOL400T57 PO; -CITA20TA27 PO; +DICL100G30 PO; +DULO-31 PO; +FISH OIL; +GABA-530 PO; -GABA300C PO; +MULT-1085 PO; +PREVCR; +[UNRECOGNIZED DRUG - OTHER]; +ceFAZolin/D5W- 1GM premix 50 ML IV ONE; +famotidine 20mg tablet PO ONE; +ringers solution, lacted 1,000 ML IV SCH
[2020-08-06 08:50] VITALS: BP 184/74
[2020-08-06] MEDS ORDERED: ringers solution, lacted 1,000 ML IV SCH (10:55)
[2020-08-06] MEDS ORDERED: morphine 2 MG/ML inj. syringe IV PRN (10:55)
[2020-08-06] MEDS ORDERED: proCHLORperazine 10 MG/2 ml inj IV PRN (10:55)
[2020-08-06] MEDS ORDERED: morphine 4 MG/ML inj SYRINge IV PRN (10:55)
[2020-08-06] MEDS ORDERED: meperidine/PF 25mg/ml syringe IV PRN ×3 (10:55)
[2020-08-06] MEDS ORDERED: ondansetron/PF 4mg/2ml inj IV PRN (10:55)
[2020-08-06] MEDS ORDERED: LIDOcaine 0.5% (5mg/ml) 50ml vial ONE (11:21)
[2020-08-06] MEDS ORDERED: fentaNYL/PF 50MCG/1 ML 2ML syringe ONE (11:24)
[2020-08-06] MEDS ORDERED: midazolam 2 mg/2 ml injection ONE (11:24)
[2020-08-06 12:05] VITALS: BP 170/84
--- NOTE | 2020-08-06 12:05 | NUR ---
Received from OR via REN , accompanied by Anesthesiologist KAREEM and report given by Anesthesiolgist. PATIENT WITH 20G PIV IN LEFT UE RUNNING LR AT 100. PATIENT WTIH RIGHT HAND DRESSING THAT ARE CDI. + CAP REFILL AND SENSATION. VSS Addendum: 08/06/20 at 1214 by Mik Campuzano RN, RN Amended: Links added.
[2020-08-06 12:15] VITALS: BP 172/83
[2020-08-06 12:25] VITALS: BP 169/81
--- NOTE | 2020-08-06 12:35 | NUR ---
PATIENT AND FAMILY AND THEY HAVE VERBALIZED UNDERSTANDING, OPPORTUNITY TO ASK QUESTIONS GIVEN AND PATIENT COMFORTABLE WITH DC. IV TAKEN OUT WITHOUT COMPLICATION. PATIENT HAS MET ALL DC CRITERIA FOR DC HOME. I HAVE REVIEWED D/C INSTRUCTIONS WITH OUT VIA WHEELCHAIR WHERE PATIENT WAS TAKEN HOME WITH ALL BELONGINGS. FAMILY GAVE PATIENT TRANSPORT HOME. Addendum: 08/06/20 at 1248 by Mik Campuzano RN, RN Amended: Links added.
== END 2020-08-06 12:35 | disposition home or self-care (01) ==
LOC: PAS 08:40
PROVIDERS: ATTEND Orthopaedic Surgery Hand Surgery
DX: T84.498A Other mechanical complication of other internal orthopedic devices, implants and grafts, initial encounter (principal); M67.441 Ganglion, right hand; M19.041 Primary osteoarthritis, right hand; G47.30 Sleep apnea, unspecified; G62.9 Polyneuropathy, unspecified; F41.9 Anxiety disorder, unspecified; F32.9 Major depressive disorder, single episode, unspecified; Z86.14 Personal history of Methicillin resistant Staphylococcus aureus infection; Z86.19 Personal history of other infectious and parasitic diseases; Z98.1 Arthrodesis status; Z98.84 Bariatric surgery status; Z98.890 Other specified postprocedural states; Z90.710 Acquired absence of both cervix and uterus; Z88.1 Allergy status to other antibiotic agents; Z91.09 Other allergy status, other than to drugs and biological substances; Z79.899 Other long term (current) drug therapy; Z20.828 Contact with and (suspected) exposure to other viral communicable diseases; Y83.8 Other surgical procedures as the cause of abnormal reaction of the patient, or of later complication, without mention of misadventure at the time of the procedure; Y92.89 Other specified places as the place of occurrence of the external cause
CPT/HCPCS: 26160; 26320; 36415; 80053; 82948; 85025; 87635; 93005; J0690; J2001; J2250; J3010; J3490; J7120; A4215; A4618; A7000

== ENCOUNTER 2020-08-06 18:28 | Emergency (ER) | payer MEDICARE, BC ==
[~2020-08-06] VITALS: Ht 147.3 cm; Wt 68.2 kg
[~2020-08-06 18:28] MED LIST changes: -BUPIVAcaine/PF 2.5mg/ml (0.25%) 10ml vial ONE; -ceFAZolin/D5W- 1GM premix 50 ML IV ONE; -famotidine 20mg tablet PO ONE; -ringers solution, lacted 1,000 ML IV SCH
[2020-08-06 21:03] VITALS: BP 143/68
== END 2020-08-06 21:04 | disposition home or self-care (01) ==
LOC: ER 18:29
DX: L76.32 Postprocedural hematoma of skin and subcutaneous tissue following other procedure (principal); Z87.01 Personal history of pneumonia (recurrent); Z87.440 Personal history of urinary (tract) infections; Z98.890 Other specified postprocedural states; Z88.1 Allergy status to other antibiotic agents; Z88.8 Allergy status to other drugs, medicaments and biological substances; Z79.899 Other long term (current) drug therapy; Y84.8 Other medical procedures as the cause of abnormal reaction of the patient, or of later complication, without mention of misadventure at the time of the procedure
CPT/HCPCS: 99281

== ENCOUNTER 2024-02-12 14:31 | Outpatient (CLI) | payer MEDICARE, BC ==
[~2024-02-12 14:31] MED LIST changes: -DICL100G30 PO; +DICL100G59 PO
== END 2024-02-12 23:59 | disposition home or self-care (01) ==
LOC: RAD 14:31
PROVIDERS: ATTEND Specialist
DX: M19.012 Primary osteoarthritis, left shoulder (principal); M75.102 Unspecified rotator cuff tear or rupture of left shoulder, not specified as traumatic; M25.412 Effusion, left shoulder; M25.512 Pain in left shoulder
CPT/HCPCS: 73200

== ENCOUNTER 2024-04-15 05:39 | Day surgery (SDC) | payer MEDICARE, BC ==
[2024-04-08 14:47] LABS: BASOPHILS % (AUTO) 0.6 % (0-1); EOSINOPHILS # (AUTO) 0.2 X10'3 (0-0.9); EOSINOPHILS % (AUTO) 2.9 % (0-6); LYMPHOCYTES # (AUTO) 1.6 X10'3 (1.1-4.8); MEAN CORPUSCULAR HEMOGLOBIN 29.8 PG (27.0-31.0); MEAN CORPUSCULAR HGB CONC 33.1 g/dL (33.0-36.5); MEAN CORPUSCULAR VOLUME 90.2 FL (78-98); MEAN PLATELET VOLUME 7.2 FL (7.4-10.4); MONOCYTES # (AUTO) 0.6 X10'3 (0-0.9); MONOCYTES % (AUTO) 11.1 % (2-12); NEUTROPHILS % (AUTO) 55.4 % (42-75); PRE OP HEMOGLOBIN 13.9 g/dL (12.0-16.0); PRE OP PLATELET COUNT 350 X10'3 (140-440); PRE OP WHITE BLOOD COUNT 5.5 10'3 (4.8-10.8); RED BLOOD COUNT 4.66 X10'6 (4.20-5.60); RED CELL DISTRIBUTION WIDTH 13.4 % (11.5-14.5)
[2024-04-08 15:15] LABS: PRE OP INR 0.9 INR
[2024-04-08 15:26] LABS: ALBUMIN 3.3 G/DL (3.4-5.0); ALBUMIN/GLOBULIN RATIO 0.9 (1.1-1.5); ALKALINE PHOSPHATASE 74 IU/L (46-116); BLOOD UREA NITROGEN 17 MG/DL (7-18); BUN/CREATININE RATIO 20.5 (10.0-20.0); CALCIUM 8.8 MG/DL (8.5-10.1); CHLORIDE 101 MMOL/L (99-107); CREATININE 0.83 MG/DL (0.40-0.90); PRE OP ALT 33 U/L (30-65); PRE OP ANION GAP 7 (8-16); PRE OP AST 23 U/L (10-37); PRE OP BILIRUB, TOTAL 0.3 MG/DL (0.0-1.0); PRE OP GLUCOSE 103 MG/DL (70-104); PRE OP POTASSIUM 4.6 MMOL/L (3.4-5.1); PRE OP SODIUM 139 MMOL/L (135-145); THYROID STIMULATING HORMONE 0.36 ulU/ml (0.34-4.50); TOTAL CARBON DIOXIDE 30.6 MMOL/L (24-32); TOTAL PROTEIN 6.9 G/DL (6.4-8.2); eGFR 67 ML/MIN
[~2024-04-15] VITALS: Ht 149.9 cm; Wt 58.6 kg
[2024-04-15] VITALS (38 sets, daily range): BP systolic 104–140; BP diastolic 54–82; PULSE 68–110; RESP 11–26; TEMP 97.3–98.7; O2SAT 88–100
[~2024-04-15 05:39] MED LIST changes: -BAC10T PO; -BIOTIN; -BUSP10TA3 PO; -CALC-723 PO; +CYCL-1 PO; -DICL100G59 PO; +DICL75TA5 PO; +EST1T PO; -FISH OIL; -HYDR-3972 PO; +LEVO150T8 PO; -LEVO75TA98 PO; +LISI1TAB51 PO; -MELO-102 PO; -MULT-1085 PO; -PREVCR; +PROG100C11 PO; +TRAM50TA2 PO; -[UNRECOGNIZED DRUG - OTHER]; +b-complex; +calcium; +iron; +potassium; +vitamin d3
[2024-04-15] MEDS: famotidine 20mg tablet PO ONE (06:15)
[2024-04-15] MEDS: tranexamic acid inj. 1,000 MG in normal saline IV soln 100ML IV ONE (06:18)
[2024-04-15] MEDS: ringers solution, lacted 1,000 ML IV SCH ×2 (06:18→11:19)
[2024-04-15] MEDS: cefazolin 2gm/D5W 100mL 100 ML IV ONE (06:19)
[2024-04-15] MEDS ORDERED: diphenhydrAMINE 25mg capsule PO PRN (07:05)
[2024-04-15] MEDS ORDERED: acetaminophen 325mg tablet PO PRN (07:05)
[2024-04-15] MEDS ORDERED: magnesium hydroxide 30ml (MOM) UD suspension PO PRN (07:05)
[2024-04-15] MEDS ORDERED: naloxone 0.4 mg/ml inj IV PRN (07:05)
[2024-04-15] MEDS ORDERED: bisacodyl 10mg suppository rectal RC PRN (07:05)
[2024-04-15] MEDS ORDERED: ondansetron/PF 4mg/2ml inj IV PRN ×2 (07:05→08:50)
[2024-04-15] MEDS ORDERED: fentaNYL/PF 50MCG/1 ML 2ML syringe ONE (07:20)
[2024-04-15] MEDS ORDERED: midazolam 1 mg/ML 2ml injection ONE (07:20)
[2024-04-15] MEDS ORDERED: succinylcholine 20mg/ml inj IV ONE ×2 (07:20→07:21)
[2024-04-15] MEDS ORDERED: propofol inj 20 ML IV ONE (07:21)
[2024-04-15] MEDS ORDERED: LIDOcaine 2% (20mg/ml) 5ml vial ONE (07:21)
[2024-04-15] MEDS ORDERED: dexamethasone sod phosphate 4mg/ml inj. ONE (07:21)
[2024-04-15] MEDS ORDERED: ondansetron/PF 4mg/2ml inj ONE (07:21)
[2024-04-15] MEDS ORDERED: ROPIVAcaine 0.5% (5mg/ml) 30ml vial ONE (07:22)
[2024-04-15] MEDS ORDERED: ePHEDrine 50MG/ML INJ. ONE ×2 (08:22→09:19)
[2024-04-15] MEDS ORDERED: acetaminophen 1,000mg/100ml IV 100 ML IV ONE (08:37)
[2024-04-15] MEDS ORDERED: fentaNYL/PF 50MCG/1 ML 2ML syringe IV PRN ×2 (08:50)
[2024-04-15] MEDS ORDERED: labetalol 20mg/4ml (5mg/ml) syringe IV PRN (08:50)
[2024-04-15] MEDS ORDERED: morphine 4 MG/ML inj SYRINge IV PRN (08:50)
[2024-04-15] MEDS ORDERED: hydrALAZINE 20mg/ml inj. IV PRN (08:50)
[2024-04-15] MEDS: vancomycin 1,000mg inj ONE (08:58)
[2024-04-15] MEDS: Thrombin (Bovine) 5,000 unit vial TP ONE (10:42)
[2024-04-15] MEDS: methylene blue (5mg/ml) 50mg/10ml ampul IV ONE (10:42)
[2024-04-15] MEDS: gelatin sponge, absorbable (Gelfoam 100) sponge TP ONE (10:42)
[2024-04-15] MEDS: potassium cl 20mEq in 1/2 NS 1,000 ML IV SCH (11:11)
[2024-04-15] MEDS: morphine 2 MG/ML inj. syringe IV PRN (11:15)
[2024-04-15] MEDS: HYDROcodone/acetaminophen 5mg/325mg tablet PO PRN ×2 (11:15→17:16)
[2024-04-15] MEDS: ceFAZolin/D5W- 1GM premix 50 ML IV SCH (16:00)
[2024-04-15] MEDS: cyclobenzaprine 10mg tablet PO PRN (20:33)
[2024-04-15] MEDS: gabapentin 300mg capsule PO SCH (20:34)
[2024-04-15] MEDS: duloxetine 30mg CAPSULE.DR PO ONE (20:34)
[2024-04-15] MEDS: Melatonin 3mg tablet PO SCH (22:05)
[2024-04-16 02:00] VITALS: BP 106/51; PULSE 83; RESP 13; TEMP 97.4; O2SAT 95
[2024-04-16] MEDS: levoTHYROXINE 25mcg tablet PO SCH (05:41)
[2024-04-16] MEDS: levoTHYROXINE 125mcg tablet PO SCH (05:45)
[2024-04-16 06:00] VITALS: BP 133/69; PULSE 82; RESP 14; TEMP 98.2; O2SAT 97
[2024-04-16 07:26] LABS: BASOPHILS % (AUTO) 0.1 % (0-1); EOSINOPHILS % (AUTO) 0 % (0-6); HEMATOCRIT 32.5 % (35.0-45.0); LYMPHOCYTES # (AUTO) 1.2 X10'3 (1.1-4.8); LYMPHOCYTES % (AUTO) 13.1 % (21-51); MEAN CORPUSCULAR HEMOGLOBIN 30.8 PG (27.0-31.0); MEAN CORPUSCULAR HGB CONC 33.8 g/dL (33.0-36.5); MEAN PLATELET VOLUME 7.3 FL (7.4-10.4); MONOCYTES # (AUTO) 1.3 X10'3 (0-0.9); MONOCYTES % (AUTO) 14.1 % (2-12); NEUTROPHILS # (AUTO) 6.8 X10'3 (1.8-7.7); NEUTROPHILS % (AUTO) 72.7 % (42-75); PLATELET COUNT 303 X10'3 (140-440); RED BLOOD COUNT 3.57 X10'6 (4.20-5.60); RED CELL DISTRIBUTION WIDTH 13.4 % (11.5-14.5); WHITE BLOOD COUNT 9.4 X10'3 (4.5-11.0)
[2024-04-16 08:07] LABS: ALANINE AMINOTRANSFERASE 27 U/L (12-78); ALBUMIN 2.7 G/DL (3.4-5.0); ALBUMIN/GLOBULIN RATIO 0.8 (1.1-1.5); ALKALINE PHOSPHATASE 62 IU/L (46-116); ANION GAP 5 (8-16); ASPARTATE AMINO TRANSFERASE 26 U/L (10-37); BILIRUBIN,TOTAL 0.3 MG/DL (0.1-1.0); BLOOD UREA NITROGEN 10 MG/DL (7-18); BUN/CREATININE RATIO 15.2 (10.0-20.0); CALCIUM 8.3 MG/DL (8.5-10.1); CHLORIDE 104 MMOL/L (99-107); CREATININE 0.66 MG/DL (0.40-0.90); GLUCOSE 90 MG/DL (70-104); POTASSIUM 5.7 MMOL/L (3.5-5.1); SODIUM 138 MMOL/L (135-145); TOTAL CARBON DIOXIDE 28.9 MMOL/L (24-32); eCRCL 49 ML/MIN; eGFR 87 ML/MIN
[2024-04-16] MEDS: duloxetine 30mg CAPSULE.DR PO SCH (08:36)
[2024-04-16] MEDS: HYDROchlorothiazide 12.5mg capsule PO SCH (08:36)
[2024-04-16] MEDS: lisinopril 20mg tablet PO SCH (08:37)
[2024-04-16] MEDS: aspirin 325mg tablet PO SCH (08:38)
[2024-04-16 10:00] VITALS: BP 121/63; PULSE 90; RESP 18; TEMP 97.6; O2SAT 95
[2024-04-16 11:22] VITALS: RESP 14
== END 2024-04-16 15:15 | disposition home or self-care (01) ==
LOC: PAS 05:39 → ORTHO 4S 07:04 → UNDOADMOB 07:04 → ORTHO 4S 07:13 → UNDOADMOB 07:13 → ORTHO 4S 07:13 → PAS 04-16 15:15
PROVIDERS: ATTEND Specialist
DX: M75.122 Complete rotator cuff tear or rupture of left shoulder, not specified as traumatic (principal); G89.18 Other acute postprocedural pain; I10 Essential (primary) hypertension; E03.9 Hypothyroidism, unspecified; I25.2 Old myocardial infarction; I20.9 Angina pectoris, unspecified; G47.33 Obstructive sleep apnea (adult) (pediatric); G62.9 Polyneuropathy, unspecified; M19.90 Unspecified osteoarthritis, unspecified site; Z79.890 Hormone replacement therapy; Z79.899 Other long term (current) drug therapy; Z90.710 Acquired absence of both cervix and uterus; Z90.89 Acquired absence of other organs; Z98.890 Other specified postprocedural states; Z88.1 Allergy status to other antibiotic agents; Z88.8 Allergy status to other drugs, medicaments and biological substances
CPT/HCPCS: 23430; 23472; 36415; 64415; 71046; 73030; 80053; 82948; 84132; 84443; 85025; 85610; 85730; 86885; 86900; 86901; 87081; 94668; 97161; 97530; A4565; A4615; A4618; A6402; A6455; A7000; C1776; J0131; J0330; J0690; J1100; J2001; J2250; J2270; J2405; J2704; J2795; J3010; J3370; J3480; J3490; J7030; J7120; Q9968; Z7506; Z7508; Z7512; Z7610; 76000; A6449; G0378

== ENCOUNTER 2024-08-13 18:38 | Emergency (ER) | payer MEDICARE, BC ==
[~2024-08-13] VITALS: Ht 147.3 cm; Wt 59.5 kg
[2024-08-13 18:42] VITALS: TEMP 98.7
[2024-08-13] MEDS: LIDOcaine 1% W/epiNEPHrine 1:100,000 20ml vial IJ ONE (21:35)
[2024-08-13] MEDS: acetaminophen 325mg tablet PO ONE (21:35)
[2024-08-13 23:07] VITALS: BP 150/98; PULSE 65; RESP 16; O2SAT 98
[2024-08-13] MEDS: bacitracin 15gm ointment TP ONE (23:07)
== END 2024-08-13 23:09 | disposition home or self-care (01) ==
LOC: ER 18:39
DX: S01.81XA Laceration without foreign body of other part of head, initial encounter (principal); G47.30 Sleep apnea, unspecified; Z88.1 Allergy status to other antibiotic agents; Z88.8 Allergy status to other drugs, medicaments and biological substances; Z87.440 Personal history of urinary (tract) infections; W01.198A Fall on same level from slipping, tripping and stumbling with subsequent striking against other object, initial encounter; Y93.89 Activity, other specified; Y92.481 Parking lot as the place of occurrence of the external cause; Y99.8 Other external cause status
CPT/HCPCS: 12013; 70450; 72125; 73564; 99284; A6402; L0172; Z7610; A6449